=== PATIENT | female | born 1995 | race Two or more races ===

== ENCOUNTER 2016-09-15 11:06 | Emergency (ER) | payer OTHER ==
[~2016-09-15] VITALS: Ht 160 cm; Wt 63.5 kg
[~2016-09-15 11:06] MED LIST: GABAPENTIN600 MG ORAL; NKM; SEROQUEL100 MG ORAL
[2016-09-15 11:55] VITALS: BP 108/74
[2016-09-15 11:57] LABS: APPEARANCE,URINE SLIGHTLY CLOUDY; KETONES,URINE NEGATIVE (NEGATIVE); LEUKOCYTE ESTERASE ,URINE 1+ (NEGATIVE); NITRITE,URINE NEGATIVE (NEGATIVE); PH,URINE 8 (4.5-8.0); PROTEIN,URINE NEGATIVE (NEGATIVE); UROBILINOGEN,URINE 1 MG/DL (0.0-1.0)
[2016-09-15 12:33] LABS: BACTERIA,URINE FEW /HPF; RBC,URINE 0-2 /HPF (0 - 2); SQUAMOUS EPITHELIAL CELL,UR FEW /LPF (NONE/OCC); WBC,URINE 0-2 /HPF (0 - 2)
[2016-09-15] MEDS ORDERED: GYNE-LOTRIMIN45 GM VG (13:10)
[2016-09-15] MEDS ORDERED: METRONIDAZOLE500 MG ORAL (13:10)
[2016-09-15 13:27] VITALS: BP 115/67
--- NOTE | 2016-09-15 23:50 | Emergency Room Report ---
History of Present Illness General Chief Complaint: Vaginal Source: Patient Present Illness HPI Pt presents with d/c for several days. White, but different from when she had yeast in the past. No pain. No dysuria. States had unprotected sex once and wants check for STDs. Never with STDs before. LNMP normal last month. No joint pain, SHAY, URI sy, rashes. Allergies: Coded Allergies: No Known Allergies (Unverified , 07/20/16) Patient History Past Medical History: see triage record Social History: Reports: smoking Social History Narrative unemployed Last Menstrual Period: 08/14/2016 Now: No : 2 Para: 2 Reviewed Nursing Documentation: PMH: Agreed, PSxH: Agreed Nursing Documentation-PMH Past Medical History: No History, Except For Hx Cardiac Problems: No Hx Asthma: Yes - Smoking induced asthma Hx Gastrointestinal Problems: No Hx Neurological Problems: No Review of Systems All Other Systems: negative except mentioned in HPI Physical Exam Vital Signs Date Time Temp Pulse Resp B/P Pulse Ox O2 Delivery O2 Flow Rate FiO2 09/15/16 11:18 98.1 96 14 108/74 99 Room Air Sp02 EP Interpretation: reviewed, normal General Appearance: well appearing, no apparent distress Head: normocephalic, atraumatic Eyes: bilateral eye PERRL ENT: hearing grossly normal, normal voice, moist mucus membranes Neck: full range of motion, supple Respiratory: no respiratory distress, speaking full sentences Cardiovascular #1: regular rate, rhythm Cardiovascular #2: 2+ radial (L) Gastrointestinal: normal bowel sounds, non tender, soft, no mass Genitourinary: adnexa normal, cervix normal, ext genitalia/vag normal, os closed, uterus normal, other - white watery discharge, no CMT Musculoskeletal: no calf tenderness Neurologic: alert, normal gait, grossly normal Psychiatric: mood/affect normal Skin: no rash Medical Decision Making Diagnostic Impression: Primary Impression: Vaginitis Qualified Codes: N76.0 - Acute vaginitis ER Course Patient presents with d/c after unprotected sex. Ddx: STD, vaginitis, yeast amongst others. Need to exclude . Labs with clue cells. UA neg. Rx given. Told need to f/u PMD and use protection. Also told we would contact her if other samples +. Patient stable for outpatient treatment and observation. Laboratory Tests Test 09/15/16 11:30 09/15/16 12:00 Urine Color Yellow Urine Appearance Slightly cloudy Urine pH 8 (4.5-8.0) Urine Specific [place] 1.010 (1.005-1.035) Urine Protein Negative (NEGATIVE) Urine Glucose (UA) Negative (NEGATIVE) Urine Ketones Negative (NEGATIVE) Urine Occult Blood Negative (NEGATIVE) Urine Nitrite Negative (NEGATIVE) Urine Bilirubin Negative (NEGATIVE) Urine Urobilinogen 1 MG/DL (0.0-1.0) H Urine Leukocyte Esterase 1+ (NEGATIVE) H Urine RBC 0-2 /HPF (0 - 2) Urine WBC 0-2 /HPF (0 - 2) Urine Squamous Epithelial Cells Few /LPF (NONE/OCC) Urine Bacteria Few /HPF (NONE) Urine HCG, Qualitative Negative Chlamydia trachomatis RNA Pending Neisseria gonorrhoeae RNA Pending Microbiology Date/Time Source Procedure Growth Status 09/15/16 12:10 Vaginal Wet Prep - Final Complete Last Vital Signs Date Time Temp Pulse Resp B/P Pulse Ox O2 Delivery O2 Flow Rate FiO2 09/15/16 13:27 87 16 115/67 98 Room Air 09/15/16 11:55 98.1 Status: unchanged Disposition: HOME, SELF-CARE Condition: Stable Scripts Clotrimazole (GYNE-LOTRIMIN*) 45 Gm Cream.appl 1 APPLIC VG QHS, #45 GM 0 Refills Prov: Yunier Garrett M.D. 09/15/16 Metronidazole* (FLAGYL*) 500 Mg Tablet 500 MG ORAL EVERY 8 HOURS, #21 TAB Prov: Yunier Garrett M.D. 09/15/16 Patient Instructions: Vaginitis Additional Instructions: Follow up with your subsea engineer. Protection. We will call if results positive. Yunier Garrett M.D. Sep 15, 2016 23:50
== END 2016-09-15 12:37 | disposition home or self-care (01) ==
LOC: EMR 11:56
DX: N76.0 Acute vaginitis (principal); F17.200 Nicotine dependence, unspecified, uncomplicated
CPT/HCPCS: 81003; 81025; 87070; 87181; 87210; 87491; 87590; 99284

== ENCOUNTER 2016-09-24 18:21 | Emergency (ER) | payer OTHER ==
[~2016-09-24] VITALS: Ht 160 cm; Wt 63.5 kg
[~2016-09-24 18:21] MED LIST changes: +GYNE-LOTRIMIN45 GM VG; +METRONIDAZOLE500 MG ORAL
[2016-09-24 18:44] VITALS: BP 111/74
--- NOTE | 2016-09-24 19:01 | Emergency Room Report ---
History of Present Illness General Chief Complaint: Toothache Present Illness HPI 21 YO female . presents to the ED c/o pain, swelling, and erythema to the upper left, and lower right jaw, and tooth pain with a broken tooth and two teeth with obvious dental carries x 7 days. She denies fevers or chills. Patient states that she was told she will need root canals by her dentist however she was unable to afford the procedure. Patient states that over the course of the last 7 days her pain has increased and she also has moderate sensitivity to the gum line about the tooth that is broken. Patient states that the tooth broke several months ago. Patient denies headache. Patient states she's been taking Tylenol with no relief. Denies CP, Palpitations, LOC, AMS, dizziness, Changes in Vision, Sensation, paresthesias, or a sudden severe headache. (Desire Meraz P.A.) Allergies: Coded Allergies: No Known Allergies (Unverified , 07/20/16) Patient History Past Medical History: see triage record Past Surgical History: none Pertinent Family History: none Last Menstrual Period: 09/18/2016 Now: No : 2 Para: 2 Immunizations: UTD Reviewed Nursing Documentation: PMH: Agreed, PSxH: Agreed (Desire Meraz P.[place]ouie) Nursing Documentation-PMH Hx Cardiac Problems: No Hx Asthma: Yes - Smoking induced asthma Hx Gastrointestinal Problems: No Hx Neurological Problems: No (Desire eMraz P.ALouie) Review of Systems All Other Systems: negative except mentioned in HPI (Desire Meraz P.A.) Physical Exam Vital Signs Date Time Temp Pulse Resp B/P Pulse Ox O2 Delivery O2 Flow Rate FiO2 09/24/16 18:39 98.2 71 16 111/74 100 Room Air Sp02 EP Interpretation: reviewed, normal General Appearance: no apparent distress, alert, GCS 15, non-toxic Head: normocephalic, atraumatic Eyes: bilateral eye PERRL, bilateral eye normal inspection ENT: hearing grossly normal, normal pharynx, no angioedema, normal voice, uvula midline, moist mucus membranes, other - Tooth # 15 is broken off at the gumline with TTP and erythema of the gum, no areas of flluctuance noted. teeth # 30, 29, and 18 have large obvious dental carries with tenderness to percussion with tongue depressor. Neck: full range of motion, supple/symm/no masses Respiratory: lungs clear, normal breath sounds, no rhonchi, speaking full sentences Cardiovascular #1: regular rate, rhythm, no edema Musculoskeletal: back normal, gait/station normal, normal range of motion Neurologic: alert, oriented x3, responsive, motor strength/tone normal, sensory intact, speech normal Psychiatric: judgement/insight normal, memory normal, mood/affect normal, no suicidal/homicidal ideation Skin: normal color, no rash, warm/dry, well hydrated Lymphatic: no adenopathy (Desire Meraz) Medical Decision Making PA Attestation Dr. Garrett is my supervising Physician whom patient management has been discussed with. (Desire Meraz) Diagnostic Impression: Primary Impression: Tooth pulpitis Additional Impression: Pain due to dental caries ER Course Pt. presents to the ED c/o pain, swelling, and erythema to the right jaw, and tooth pain with a broken tooth and two teeth with obvious dental carries x 7 days Ddx considered but are not limited to cellulitis, dental abscess, orbital cellulitis, d/l tooth, dental pain. trigeminal neuralgia Vital signs: are WNL, pt. is afebrile H&PE are most consistent with tooth pulpitis, and pain due to dental caries. ORDERS: none required at this time, the diagnosis is clinical ED INTERVENTIONS: 5mg [place] PO d/w pt. proper follow up with Dentist, and gave low-cost dental referral DISCHARGE: At this time pt. is stable for d/c to home. Will provide printed patient care instructions, and any necessary prescriptions. Care plan and follow up instructions have been discussed with the patient prior to discharge. (Desire Meraz) Last Vital Signs Date Time Temp Pulse Resp B/P Pulse Ox O2 Delivery O2 Flow Rate FiO2 09/24/16 18:44 98.2 71 16 111/74 100 Room Air (Desire Meraz) Disposition: HOME, SELF-CARE Condition: Stable Scripts Ibuprofen* (MOTRIN*) 600 Mg Tablet 600 MG ORAL THREE TIMES A DAY, #30 TAB 0 Refills Prov: Desire Meraz 09/24/16 Hydrocodone Bit/Acetaminophen 5-325* (NORCO 5-325*) 1 Each Tablet 1 TAB ORAL Q6H Y for For Pain, #9 TAB 0 Refills Prov: Desire Meraz 09/24/16 Amoxicillin* (AMOXIL*) 500 Mg Capsule 500 MG ORAL BID for 7 Days, #14 CAP Prov: Desire Meraz 09/24/16 Referrals: NOT CHOSEN IPA/,REFERRING (PCP) Patient Instructions: Dental Pain Additional Instructions: Take medications as directed. Follow up with PCP in 3-5 days Return sooner to ED if new symptoms occur, or current symptoms become worse. Do not drink alcohol, drive, or operate heavy machinery while taking [place] as this may cause drowsiness. - Please note that this Emergency Department Report was dictated using [employer] technology software, occasionally this can lead to erroneous entry secondary to interpretation by the dictation equipment. Desire Meraz Sep 24, 2016 19:01 Yunier Garrett M.D. Oct 04, 2016 06:23
[2016-09-24] MEDS ORDERED: IBUPROFEN600 MG ORAL (19:10)
[2016-09-24] MEDS ORDERED: AMOXICILLIN500 MG ORAL (19:10)
[2016-09-24] MEDS ORDERED: NORCO 5-325 TA1 EACH ORAL (19:10)
[2016-09-24] MEDS ORDERED: Norco 5mg/325mg tab ORAL ONE (19:15)
[2016-09-24 19:20] VITALS: BP 132/93
== END 2016-09-24 19:20 | disposition home or self-care (01) ==
LOC: EMR 18:50
DX: K04.01 Reversible pulpitis (principal); K02.9 Dental caries, unspecified; J45.909 Unspecified asthma, uncomplicated
CPT/HCPCS: 99284